=== PATIENT | female | born 1940 | race Caucasian/White ===

== ENCOUNTER 2022-06-07 08:54 | Emergency (ER) | payer MEDICARE, OTHER ==
[~2022-06-07] VITALS: Ht 152.4 cm; Wt 91.0 kg
[2022-06-07 09:14] VITALS: BP 116/58
[2022-06-07 09:31] VITALS: BP 121/84
[2022-06-07 12:20] VITALS: BP 121/84
== END 2022-06-07 12:46 | disposition home or self-care (01) ==
LOC: ED 08:54
PROC: 2W3QX1Z Immobilization of Right Lower Leg using Splint (ICD-10-PCS; principal; 2022-06-07)
DX: S82.64XA Nondisplaced fracture of lateral malleolus of right fibula, initial encounter for closed fracture (principal); W01.0XXA Fall on same level from slipping, tripping and stumbling without subsequent striking against object, initial encounter; Y92.009 Unspecified place in unspecified non-institutional (private) residence as the place of occurrence of the external cause; Z95.0 Presence of cardiac pacemaker